=== PATIENT | male | born 1950 | race Caucasian/White ===

== ENCOUNTER 2020-06-21 15:57 | Inpatient (IN) ==
[2020-06-21] MEDS ORDERED: LABETALOL 100 MG/20 ML VIAL IV STA (16:34)
[2020-06-21 16:40] LABS: Basophils # 0.1 10*3/uL (0.0-0.2); Basophils % 0.4 % (0.0-0.8); Hematocrit 48.7 VOL% (42.0-52.0); Hemoglobin 15.9 GM/DL (14.0-18.0); Immature Granulocytes % 0.3 %; Immature Granulocytes Absolute 0.05 #; Lymphocytes # 1.2 10*3/uL (1.4-4.0); Mean Corpuscular HGB Conc 32.6 GM/DL (32-36); Mean Platelet Volume 9.1 FL (9.6-12.0); Monocytes % 1.8 % (1.7-12.7); Neutrophils % 89.5 % (38.7-73.9); Platelet Count 232 T/CUMM (130-400); Red Blood Count 5.66 MC/CUMM (3.8-5.5); Red Cell Distribution Width 13.2 % (9.3-17.3); White Blood Count 15.2 T/CUMM (4-12)
[2020-06-21 16:48] LABS: Partial Thromboplastin Time 26.2 SECS (23.9-33.8)
[2020-06-21 16:58] LABS: Albumin 3.8 G/DL (3.4-5.0); Bilirubin,Total 0.9 MG/DL (0.2-1.0); CKMB % 10.3 %; Osmolality,Calculated 276.7 MOS/KG (273-304); Potassium 3.7 MMOL/L (3.5-5.1); Total Protein 7.3 G/DL (6.4-8.2)
[2020-06-21 17:00] LABS: Troponin I 4.22 NG/ML (0.00-0.045)
[2020-06-21] MEDS ORDERED: ASPIRIN CHEW 81 MG TABLET PO STA (17:15)
[2020-06-21] MEDS ORDERED: NITROGLYCERIN SL 0.4 MG TABLET SL ONE (17:20)
[2020-06-21] MEDS ORDERED: NITROGLYCERIN SL 0.4 MG TABLET SL STA (17:26)
[2020-06-21 20:54] LABS: CKMB % 13.1 %
[2020-06-21 20:56] LABS: Troponin I 21.1 NG/ML (0.00-0.045)
[2020-06-21] MEDS ORDERED: ENOXAPARIN 100 MG/ML SYRINGE SUBCUT ONE (23:01)
[2020-06-22] MEDS ORDERED: ENOXAPARIN 100 MG/ML SYRINGE SUBCUT ONE (04:37)
[2020-06-22 05:58] LABS: Basophils % 0.3 % (0.0-0.8); Eosinophils % 0.2 % (0.00-10.9); Hematocrit 41.3 VOL% (42.0-52.0); Immature Granulocytes % 0.4 %; Immature Granulocytes Absolute 0.04 #; Lymphocytes # 2.3 10*3/uL (1.4-4.0); Lymphocytes % 21.9 % (21.2-54.2); Mean Corpuscular HGB Conc 33.4 GM/DL (32-36); Mean Corpuscular Volume 86.2 FL (87-102); Mean Platelet Volume 9.1 FL (9.6-12.0); Monocytes % 8.1 % (1.7-12.7); Neutrophils % 69.1 % (38.7-73.9); Platelet Count 191 T/CUMM (130-400); Red Blood Count 4.79 MC/CUMM (3.8-5.5); Red Cell Distribution Width 13.3 % (9.3-17.3); White Blood Count 10.6 T/CUMM (4-12)
[2020-06-22 05:59] LABS: Hemoglobin 13.8 GM/DL (14.0-18.0)
[2020-06-22 06:15] LABS: Bilirubin,Total 0.9 MG/DL (0.2-1.0); Calcium 8.8 MG/DL (8.5-10.1); Osmolality,Calculated 281.1 MOS/KG (273-304); Potassium 3.7 MMOL/L (3.5-5.1); Total Protein 5.5 G/DL (6.4-8.2)
[2020-06-22 06:19] LABS: CKMB % 9.2 %
[2020-06-22 06:20] LABS: Troponin I 18.4 NG/ML (0.00-0.045)
[2020-06-22] MEDS ORDERED: POTASSIUM CHLORIDE RIDER 10 MEQ in PREMIX 1 EACH IV PRN (06:31)
[2020-06-22] MEDS ORDERED: DIAZEPAM 5 MG TABLET PO ONE (06:31)
[2020-06-22] MEDS ORDERED: MAGNESIUM SULF RIDER 2 GM/50 ML PREMIX IV PRN (06:31)
[2020-06-22] MEDS ORDERED: VERAPAMIL 5 MG/2 ML VIAL ONE (06:45)
[2020-06-22] MEDS ORDERED: LIDOCAINE 1% 20 ML VIAL ONE (06:45)
[2020-06-22] MEDS ORDERED: NITROGLYCERIN DRIP 50 MG/250 ML BOTTLE IV ONE (06:45)
[2020-06-22] MEDS ORDERED: HEPARIN/NACL 0.9% 2 UNITS/ML 2,000 UNIT/1,000 ML BAG IV ONE (06:45)
[2020-06-22] MEDS ORDERED: MIDAZOLAM 2 MG/2 ML VIAL ONE (07:02)
[2020-06-22] MEDS ORDERED: HYDROmorphone 2 MG/1 ML VIAL ONE (07:02)
[2020-06-22] MEDS ORDERED: diphenhydrAMINE 50 MG/1 ML VIAL ONE (07:16)
[2020-06-22] MEDS ORDERED: TIROFIBAN 5,000 MCG/100 ML PREMIX IV ONE (07:55)
[2020-06-22] MEDS ORDERED: TICAGRELOR 90 MG TABLET ONE (08:23)
[2020-06-22] MEDS ORDERED: ONDANSETRON 4 MG/2 ML VIAL IV PRN (08:37)
[2020-06-22] MEDS ORDERED: ZALEPLON 5 MG CAPSULE PO PRN (08:37)
[2020-06-22] MEDS ORDERED: SODIUM CHLORIDE 0.9% 1,000 ML IV SCH (09:00)
[2020-06-22] MEDS ORDERED: LOSARTAN 25 MG TABLET PO SCH (09:00)
[2020-06-22] MEDS: PANTOPRAZOLE 40 MG TABLET PO SCH (09:36)
[2020-06-22] MEDS: ASPIRIN EC 81 MG TABLET PO SCH (09:36)
[2020-06-22] MEDS: carvediloL 12.5 MG TABLET PO SCH ×2 (09:37→21:55)
[2020-06-22] MEDS: TICAGRELOR 90 MG TABLET PO SCH ×2 (09:37→21:56)
[2020-06-22] MEDS: ACETAMINOPHEN 325 MG TABLET PO PRN (17:50)
[2020-06-22] MEDS ORDERED: ROSUVASTATIN 20 MG TABLET PO SCH (21:00)
[2020-06-23] MEDS: ACETAMINOPHEN 325 MG TABLET PO PRN (03:19)
[2020-06-23 06:40] LABS: Calcium 8.9 MG/DL (8.5-10.1); Osmolality,Calculated 277.4 MOS/KG (273-304); Potassium 3.8 MMOL/L (3.5-5.1); Risk Ratio 3.19; VLDL CHOLESTEROL 17.8 MG/DL
[2020-06-23 06:55] LABS: CKMB % 3.5 %; Troponin I 11.8 NG/ML (0.00-0.045)
[2020-06-23] MEDS: carvediloL 12.5 MG TABLET PO SCH (08:24)
[2020-06-23] MEDS: ASPIRIN EC 81 MG TABLET PO SCH (08:24)
[2020-06-23] MEDS: TICAGRELOR 90 MG TABLET PO SCH (08:24)
[2020-06-23] MEDS: PANTOPRAZOLE 40 MG TABLET PO SCH (08:24)
[2020-06-23] MEDS ORDERED: FUROSEMIDE 40 MG TABLET PO SCH (09:00)
[2020-06-23] MEDS ORDERED: LOSARTAN 50 MG TABLET PO SCH (09:00)
[2020-06-23 09:15] VITALS: BP 100/61
== END 2020-06-23 10:43 | disposition home or self-care (01) | DRG 247 ==
LOC: N.ED 15:57 → N.EDINP 17:57 → N.ICU 18:24
PROVIDERS: ADMIT Internal Medicine Cardiovascular Disease; ATTEND Internal Medicine Cardiovascular Disease
PROC: CLCCHCL (ICD-10-PCS; 2020-06-22 07:15)